=== PATIENT | female | born 1980 | race Native Hawaiian/Other Pacific Islander ===

== ENCOUNTER 2017-04-05 19:21 | Emergency (ER) | payer BC, OTHER ==
[2017-04-05 19:52] VITALS: BMI 28.9
[2017-04-05 20:38] LABS: BASO % 0.3 % (0.0-2.0); EOS # 0.3 K/uL (0.0-0.7); EOS % 2.7 % (0.0-4.0); HEMATOCRIT 36.6 % (34.0-47.0); LYMPH # 2.2 K/uL (1.0-4.3); LYMPH % 17.8 % (20.0-40.0); MEAN CELL VOLUME 96.1 fl (81.0-99.0); MEAN CORPUSCULAR HEMOGLOBIN 32.3 pg (27.0-31.0); MEAN CORPUSCULAR HGB CONC 33.6 g/dL (33.0-37.0); MEAN PLATELET VOLUME 8.1 fl (7.2-11.7); MONO # 1.2 K/uL (0.0-0.8); MONO % 9.8 % (0.0-10.0); NEUT # 8.5 K/uL (1.8-7.0); NEUT % 69.4 % (50.0-75.0); NRBC % 0.3 % (0.0-0.0); RED CELL DISTRIBUTION WIDTH 13.2 % (11.5-14.5); WHITE BLOOD COUNT 12.2 K/uL (4.8-10.8)
[2017-04-05 20:50] LABS: ALB/GLOB RATIO 1.2 (1.0-2.1); ALKALINE PHOSPHATASE 111 U/L (38-126); ALT/SGPT 29 U/L (9-52); AST/SGOT 24 U/L (14-36); BILIRUBIN,TOTAL 0.2 mg/dl (0.2-1.3); BLOOD UREA NITROGEN 13 mg/dl (7-17); CARBON DIOXIDE 20 mmol/L (22-30); CHLORIDE 105 mmol/L (98-107); GFR AFRICAN-AMERICAN > 60; GLUCOSE,RANDOM 71 mg/dL (65-105); SODIUM 136 mmol/l (132-148); TOTAL PROTEIN 7.1 G/DL (6.3-8.2)
[2017-04-05 20:53] LABS: RBC URINE 1 /hpf (0-3); URINE BACTERIA MOD (<OCC); URINE BILIRUBIN NEGATIVE (NEGATIVE); URINE BLOOD NEGATIVE (NEGATIVE); URINE COLOR COLORLESS (YELLOW); URINE GLUCOSE (UA) NEG (Normal); URINE KETONE NEGATIVE (NEGATIVE); URINE LEUKOCYTE ESTERASE NEG Leu/uL (Negative); URINE PROTEIN NEGATIVE (NEGATIVE); URINE UROBILINOGEN 0.2-1.0 mg/dL (0.2-1.0); WBC URINE 1 /hpf (0-5)
--- NOTE | 2017-04-05 22:19 | OBHP ---
Datetime: 04/05/2017 22:17 IP Adm Impression: , intrauterine IP Admit Plan: Observation/Evaluation Pelvic Type - PN: Adequate Extremities - PN: Normal Abdomen - PN: Normal Back - PN: Normal Breast - PN: Normal Lungs - PN: Normal Heart - PN: Normal Thyroid - PN: Normal Neurologic - PN: Normal HEENT - PN: Normal General - PN: Normal FHR - Baseline A Provider: 130 EGA AdmitDate IP: 30.0 Vital Signs Provider: Reviewed; Within Normal Limits IP Chief Complaint: Other NICHD Variability Prov Fetus A: Moderate 6-25bpm NICHD Accel Fetus A IP Provider: 10X10 FHR Category Provider Fetus A: Category I NICHD Decel Fetus A IP Provider: None Genitourinary Exam: Normal DTRs - PN: Normal Datetime: 04/05/2017 21:50 Admit Comment, IP Provider: 36yo edc 11/13 by lmp _ 1st trim us presents for eval of and mon itoring of elev bp noted in office today. She denies h/a, scotomata, ruq pain, midepigastric pain, n /v, or blurred va. obhx: cd for failed induction @ 40wks EAB x2 shx: denies etoh, tobacco, or illicit drug use pshx: as above medic: pnv nkda I: 29wks No evidence of preeclampsia P: f/u for ob us as sched tomorrow f/u with dr padron in 1wk pt d/w dr padron Comments, ACOG Physical Exam: dtr 1/ Vital Signs Provider Details: 120-140/60-91
[2017-04-06 03:20] VITALS: BP 135/76; PULSE 55
== END 2017-04-05 21:15 | disposition home or self-care (01) ==
LOC: H.EROB2 19:21
DX: O47.03 False labor before 37 completed weeks of gestation, third trimester (principal); Z3A.29 29 weeks gestation of pregnancy; O13.3 Gestational [pregnancy-induced] hypertension without significant proteinuria, third trimester

== ENCOUNTER 2017-04-26 21:04 | Emergency (ER) | payer BC ==
[2017-04-26 21:24] VITALS: BMI 28.1
[2017-04-26 22:41] LABS: BASO # 0.1 K/uL (0.0-0.2); BASO % 0.7 % (0.0-2.0); EOS # 0.2 K/uL (0.0-0.7); EOS % 1.9 % (0.0-4.0); HEMATOCRIT 36.8 % (34.0-47.0); LYMPH % 20.7 % (20.0-40.0); MEAN CELL VOLUME 96.1 fl (81.0-99.0); MEAN CORPUSCULAR HEMOGLOBIN 33.6 pg (27.0-31.0); MEAN CORPUSCULAR HGB CONC 34.9 g/dL (33.0-37.0); MEAN PLATELET VOLUME 8.2 fl (7.2-11.7); MONO # 0.8 K/uL (0.0-0.8); NEUT # 6.6 K/uL (1.8-7.0); NEUT % 68.7 % (50.0-75.0); NRBC % 0.1 % (0.0-0.0); RED CELL DISTRIBUTION WIDTH 13.6 % (11.5-14.5); WHITE BLOOD COUNT 9.6 K/uL (4.8-10.8)
[2017-04-26 22:57] LABS: RBC URINE 3 /hpf (0-3); URINE BACTERIA RARE (<OCC); URINE BILIRUBIN NEGATIVE (NEGATIVE); URINE BLOOD NEGATIVE (NEGATIVE); URINE COLOR YELLOW (YELLOW); URINE GLUCOSE (UA) NEG (Normal); URINE KETONE NEGATIVE (NEGATIVE); URINE LEUKOCYTE ESTERASE NEG Leu/uL (Negative); URINE PROTEIN 100 mg/dL (NEGATIVE); URINE UROBILINOGEN 0.2-1.0 mg/dL (0.2-1.0); WBC URINE 2 /hpf (0-5)
[2017-04-26 23:09] LABS: ALB/GLOB RATIO 1.1 (1.0-2.1); ALKALINE PHOSPHATASE 150 U/L (38-126); ALT/SGPT 26 U/L (9-52); AST/SGOT 33 U/L (14-36); BILIRUBIN,TOTAL 0.2 mg/dl (0.2-1.3); BLOOD UREA NITROGEN 11 mg/dl (7-17); CALCIUM 9.6 mg/dL (8.4-10.2); CARBON DIOXIDE 19 mmol/L (22-30); CHLORIDE 106 mmol/L (98-107); GFR AFRICAN-AMERICAN > 60; GLUCOSE,RANDOM 114 mg/dL (65-105); POTASSIUM 3.8 MMOL/L (3.6-5.0); SODIUM 135 mmol/l (132-148); TOTAL PROTEIN 6.6 G/DL (6.3-8.2)
[2017-04-27 05:40] VITALS: BP 159/88; PULSE 74; O2SAT 100
== END 2017-04-26 23:50 | disposition home or self-care (01) ==
LOC: H.EROB2 21:04
DX: O47.03 False labor before 37 completed weeks of gestation, third trimester (principal); Z3A.32 32 weeks gestation of pregnancy